=== PATIENT | female | born 1990 | race Caucasian/White ===

== ENCOUNTER 2020-06-17 22:47 | Emergency (ER) | payer MEDICAID, SELFPAY ==
[2020-06-17 22:52] VITALS: BP 117/78; PULSE 67; RESP 14; TEMP 36.1; O2SAT 98; BMI 21.6
--- NOTE | 2020-06-17 23:38 | ED_ITS ---
HPI - Abdominal Pain General Chief Complaint: Nausea/Vomiting/Diarrhea Stated Complaint: nausea Time Seen by Provider: 06/17/20 23:36 Source: patient Mode of arrival: ambulatory Limitations: no limitations History of Present Illness HPI narrative: pt with no significant past medical history missed her period complaining of lower abdominal pain with nausea vomiting all day today pain is localized suprapubic area no vaginal bleeding no urinary complaints patient denied any breast tenderness no fever no chills MD elicited complaint: abdominal pain Pertinent past history: none Related Data Allergies Allergy/AdvReac Type Severity Reaction Status Date / Time No Known Allergies Allergy Unverified 12/18/19 17:29 [No Known Allergies*] Review of Systems Review of Systems Constitutional : No Weight loss, No Fever, No Chills ENT/Mouth : No sore throat, No Rhinorrhea Eyes: No Eye Pain, No Swelling Cardiovascular : No Chest Pain, no palpitations Respiratory : No Cough, No Sputum, no shortness of breath Gastrointestinal : ++ Nausea, ++ Vomiting, No Diarrhea, ++ abdominal Pain, no black stools Genitourinary : No Dysuria, No Urinary Frequency Musculoskeletal : No joint pain, No Myalgias, No Joint Swelling Skin : No Skin Lesions, No rash Neuro : No Weakness, No Numbness, No Dizziness, No Headache Psych : No Anxiety/Panic, No Depression Heme/Lymph: No Bruising, No Lymphadenopathy Endocrine : No Polyuria, No Polydipsia All other systems reviewed and are negative Physical Exam Vital Signs: Vital Signs: Last Vital Signs Temp 97 F 06/17/20 22:52 Pulse 67 06/17/20 22:52 Resp 14 06/17/20 22:52 BP 117/78 06/17/20 22:52 Pulse Ox 98 06/17/20 22:52 Body Mass Index 21.6 Appearance: Alert. Oriented X3. No acute distress. Eyes: Pupils equal, round and reactive to light. ENT: Pharynx normal. Dry mucosa Neck: Normal inspection. Neck supple. CVS: Normal heart rate and rhythm. Pulses normal. Respiratory: No respiratory distress. Breath sounds normal. Abdomen: Soft slight suprapubic tenderness no rebound tenderness or guarding, Bowel sounds are present, no mass palpable, no CVA tenderness Skin: Skin warm and dry. Normal skin color. Normal skin turgor. Extremities: No lower extremity edema. Neuro: Oriented X 3. No motor deficit. No sensory deficit. MDM - Abdominal Pain MDM Narrative Medical decision making narrative: Patient with acute vomiting all day today urine is negative patient feeling much better after IV medication and IV hydration will discharge patient Differential Diagnosis Differential diagnosis: Likely gastroenteritis, gastritis and pancreatitis Lab Data Attestation: I reviewed the patient's lab results. Result diagrams: 06/17/20 23:58 06/17/20 23:59 Labs: Lab Results 06/17/20 06/17/20 06/17/20 Range/Units 23:58 23:59 23:59 WBC 11.7 H (4.8-10.8) X10*3/uL RBC 4.54 (4.20-5.50) X10*6/uL Hgb 12.8 (12.0-16.0) g/dl Hct 39.1 (37-47) % MCV 86.1 (80-98) fL MCH 28.2 (27.0-33.0) pg MCHC 32.7 (31.0-35.0) g/dl RDW 12.6 (11.0-16.0) % Plt Count 235 (160-400) X10*3/uL MPV 10.7 (9.4-12.3) fL Immature Gran % (Auto) 0.3 (0.0-0.4) % Neut % (Auto) 71.9 (45-73) % Lymph % (Auto) 24.4 (20-40) % [place] % (Auto) 2.7 (2-11) % Eos % (Auto) 0.4 (0-4) % Baso % (Auto) 0.3 (0-2) % Lymph # (Auto) 2.9 (1.2-4.9) X10*3/uL [place] # (Auto) 0.3 (0.1-1.2) X10*3/uL Eos # (Auto) 0.1 (0.0-0.4) X10*3/uL Baso # (Auto) 0.0 (0.0-0.2) X10*3/uL Abs Immat Gran (auto) 0.04 H (0.00-0.03) X10*3/uL Absolute Neuts (auto) 8.4 H (2.0-8.3) X10*3/uL Absolute Nucleated RBC 0.000 (0.0-0.012) X10*3/uL Nucleated RBC % (auto) 0.0 (0.0-0.2) /100WBC Sodium 139 (135-145) mmol/L Potassium 4.1 (3.3-5.1) mmol/L Chloride 105 (96-108) mmol/L Carbon Dioxide 25 (22-29) mmol/L Anion Gap 13 (12-20) BUN 12 (9-16) mg/dL Creatinine 0.76 (0.5-1.4) mg/dL Estim Creat Clear Calc 67.7 Estimated GFR > 60 Random Glucose 131 H (60-115) mg/dL Calcium 8.8 (8.4-10.2) mg/dL Total Bilirubin 0.6 (0.0-1.0) mg/dL Direct Bilirubin 0.2 (0.0-0.5) mg/dL AST 15 (5-31) U/L ALT 17 (0-31) U/L Alkaline Phosphatase 106 (39-117) U/L Total Protein 7.5 (6.5-8.0) g/dL Albumin 4.6 (3.5-5.0) g/dL Lipase 20 (8-78) U/L Urine Color YELLOW Urine Appearance CLEAR Urine pH 5.5 (5.0-8.0) Ur Specific [place] >= 1.030 H (1.005-1.025) Urine Protein NEG (NEG-TRACE) MG/DL Urine Glucose (UA) NEG (NEG) MG/DL Urine Ketones NEG (NEG) MG/DL Urine Blood NEG (NEG) Urine Nitrite NEG (NEG) Ur Leukocyte Esterase NEG (NEG) Urine Test (NEGATIVE) 06/17/20 Range/Units 23:59 WBC (4.8-10.8) X10*3/uL RBC (4.20-5.50) X10*6/uL Hgb (12.0-16.0) g/dl Hct (37-47) % MCV (80-98) fL MCH (27.0-33.0) pg MCHC (31.0-35.0) g/dl RDW (11.0-16.0) % Plt Count (160-400) X10*3/uL MPV (9.4-12.3) fL Immature Gran % (Auto) (0.0-0.4) % Neut % (Auto) (45-73) % Lymph % (Auto) (20-40) % [place] % (Auto) (2-11) % Eos % (Auto) (0-4) % Baso % (Auto) (0-2) % Lymph # (Auto) (1.2-4.9) X10*3/uL [place] # (Auto) (0.1-1.2) X10*3/uL Eos # (Auto) (0.0-0.4) X10*3/uL Baso # (Auto) (0.0-0.2) X10*3/uL Abs Immat Gran (auto) (0.00-0.03) X10*3/uL Absolute Neuts (auto) (2.0-8.3) X10*3/uL Absolute Nucleated RBC (0.0-0.012) X10*3/uL Nucleated RBC % (auto) (0.0-0.2) /100WBC Sodium (135-145) mmol/L Potassium (3.3-5.1) mmol/L Chloride (96-108) mmol/L Carbon Dioxide (22-29) mmol/L Anion Gap (12-20) BUN (9-16) mg/dL Creatinine (0.5-1.4) mg/dL Estim Creat Clear Calc Estimated GFR Random Glucose (60-115) mg/dL Calcium (8.4-10.2) mg/dL Total Bilirubin (0.0-1.0) mg/dL Direct Bilirubin (0.0-0.5) mg/dL AST (5-31) U/L ALT (0-31) U/L Alkaline Phosphatase (39-117) U/L Total Protein (6.5-8.0) g/dL Albumin (3.5-5.0) g/dL Lipase (8-78) U/L Urine Color Urine Appearance Urine pH (5.0-8.0) Ur Specific [place] (1.005-1.025) Urine Protein (NEG-TRACE) MG/DL Urine Glucose (UA) (NEG) MG/DL Urine Ketones (NEG) MG/DL Urine Blood (NEG) Urine Nitrite (NEG) Ur Leukocyte Esterase (NEG) Urine Test NEGATIVE (NEGATIVE) PMFSH Past Medical History Medical History Heart murmur Social History Social History Advance Directives: No Advance Directives Information Provided: No
[2020-06-18] MEDS: ondansetron HCL 4 MG/2 ML VIAL IVPUSH (00:11)
[2020-06-18] MEDS: 0.9 % Sodium Chloride 1,000 ML 999 ML IVCONT (00:11)
[2020-06-18 00:18] LABS: MANUAL DIFF FLAG NO
[2020-06-18 00:19] LABS: Basophils Percent Auto 0.3 % (0-2); Eosinophils Absolute Auto 0.1 X10*3/uL (0.0-0.4); Eosinophils Percent Auto 0.4 % (0-4); Hematocrit 39.1 % (37-47); Hemoglobin 12.8 g/dl (12.0-16.0); Imm Gran Abs Auto 0.04 X10*3/uL (0.00-0.03); Imm Gran Pct Auto 0.3 % (0.0-0.4); Lymphocytes Absolute Auto 2.9 X10*3/uL (1.2-4.9); Lymphocytes Percent Auto 24.4 % (20-40); Mean Corpuscular HGB Conc 32.7 g/dl (31.0-35.0); Mean Corpuscular Hemoglobin 28.2 pg (27.0-33.0); Mean Corpuscular Volume 86.1 fL (80-98); Mean Platelet Volume 10.7 fL (9.4-12.3); Monocytes Absolute Auto 0.3 X10*3/uL (0.1-1.2); Monocytes Percent Auto 2.7 % (2-11); Neutrophils Absolute Auto 8.4 X10*3/uL (2.0-8.3); Neutrophils Percent Auto 71.9 % (45-73); Platelet Count 235 X10*3/uL (160-400); Red Blood Count 4.54 X10*6/uL (4.20-5.50); Red Cell Distribution Width 12.6 % (11.0-16.0); White Blood Count 11.7 X10*3/uL (4.8-10.8)
[2020-06-18 00:20] LABS: Glucose Urine UA NEG (NEG); Leukocyte Esterase Urine NEG (NEG); Nitrite Urine NEG (NEG); PH 5.5 (5.0-8.0); Specific Gravity - Urine >= 1.030 (1.005-1.025); Urine Blood NEG (NEG); Urine Ketones NEG (NEG); Urine Protein NEG (NEG-TRACE)
[2020-06-18 00:21] LABS: Appearance Urine CLEAR; Color Urine YELLOW
[2020-06-18 00:23] LABS: UPreg QC Valid YES; Urine Pregnancy NEGATIVE (NEGATIVE)
[2020-06-18 00:47] LABS: Alanine Aminotransferase 17 U/L (0-31); Albumin Level 4.6 g/dL (3.5-5.0); Alkaline Phosphatase 106 U/L (39-117); Anion Gap 13 (12-20); Aspartate Amino Transferase 15 U/L (5-31); Bilirubin Direct 0.2 mg/dL (0.0-0.5); Bilirubin Total 0.6 mg/dL (0.0-1.0); Blood Urea Nitrogen 12 mg/dL (9-16); Calcium 8.8 mg/dL (8.4-10.2); Carbon Dioxide 25 mmol/L (22-29); Chloride 105 mmol/L (96-108); Creatinine Clr Calc Pharmacy 67.7; Estimated Glomerular Filt Rate > 60; Glucose Random 131 mg/dL (60-115); Lipase 20 U/L (8-78); Potassium 4.1 mmol/L (3.3-5.1); Sodium 139 mmol/L (135-145); Total Protein 7.5 g/dL (6.5-8.0)
== END 2020-06-18 01:57 | disposition home or self-care (01) ==
PROVIDERS: Emergency Provider Internal Medicine
DX: K52.9 Noninfective gastroenteritis and colitis, unspecified (principal); R11.2 Nausea with vomiting, unspecified; R10.30 Lower abdominal pain, unspecified
CPT/HCPCS: 36415; 80048; 80076; 81003; 81025; 83690; 85025; 96361; 96374; 99283; 99284; J2405

== ENCOUNTER 2024-09-14 20:51 | Emergency (ER) | payer OTHER, SELFPAY ==
[2024-09-14 21:09] VITALS: BP 119/56; PULSE 104; RESP 18; O2SAT 96; BMI 31.6
[2024-09-14 21:26] LABS: Basophils Percent Auto 0.2 % (0-2); Eosinophils Absolute Auto 0.1 X10*3/uL (0.0-0.4); Eosinophils Percent Auto 0.7 % (0-4); Hematocrit 33.6 % (37.0-47.0); Hemoglobin 11.6 g/dl (12.0-16.0); Imm Gran Abs Auto 0.18 X10*3/uL (0.00-0.03); Imm Gran Pct Auto 1.6 % (0.0-0.4); Lymphocytes Absolute Auto 2.3 X10*3/uL (1.2-4.9); Lymphocytes Percent Auto 21.2 % (20-40); MANUAL DIFF FLAG NO; Mean Corpuscular HGB Conc 34.5 g/dl (31.0-35.0); Mean Corpuscular Hemoglobin 28.8 pg (27.0-33.0); Mean Corpuscular Volume 83.4 fL (80.0-98.0); Mean Platelet Volume 10.4 fL (9.4-12.3); Monocytes Absolute Auto 0.6 X10*3/uL (0.1-1.2); Monocytes Percent Auto 5.7 % (2-11); Neutrophils Absolute Auto 7.7 x10*3/uL (2.0-8.3); Neutrophils Percent Auto 70.6 % (45-73); Platelet Count 262 X10*3/uL (160-400); Red Blood Count 4.03 X10*6/uL (4.20-5.50); Red Cell Distribution Width 14.3 % (11.0-16.0)
--- OUTSIDE RECORDS SUMMARY | 2024-09-14 21:33 | XMS_ITS | Clinical Summary ---
Author Organization [facility] Address [address] [place] [id number] Care Team Providers Care Data Technical Lead Name Role Phone Pcp, No Primary Care Provider Unavailabl e Allergies No known active allergies Medications metoCLOPRAMIDE (REGLAN) 5 MG tablet Take 1 tablet (5 mg total) by mouth 4 times daily (every 6 hours) as needed for nausea. 14 tablet 06/20/2024 Active acetaminophen (TYLENOL) 500 MG tablet Take 1 tablet (500 mg total) by mouth 4 times daily (every 6 hours) as needed for mild pain (pain). 20 tablet 06/20/2024 Active Encounters Date Type Department Care Team Description 08/23/2024 12:10 AM EDT Ancillary Procedure [facility] Emergency Department [address] [place] [phone] Haylie Sebastian MD 08/22/2024 10:49 PM EDT - 08/23/2024 12:42 AM EDT Emergency [facility] Emergency Department [address] [place] [phone] Haylie Sebastian MD Lower abdominal pain (Primary Dx); Encounter for supervision of normal , unspecified, unspecified trimester Discharge Disposition: Home or Self Care 08/22/2024 Travel 08/09/2024 Ancillary Procedure [facility] Emergency Department [address] [place] [phone] Shelia Stein PA-C 08/08/2024 10:52 PM EDT - 08/09/2024 2:10 AM EDT Emergency [facility] Emergency Department [address] [place] [phone] Xavier Bentley MD LLQ abdominal pain (Primary Dx) Discharge Disposition: Home or Self Care 08/08/2024 Travel 08/03/2024 5:40 PM EDT Ancillary Procedure [facility] Emergency Department [address] [place] [address], [place] [phone] 08/03/2024 5:21 PM EDT - 08/03/2024 7:04 PM EDT Emergency [facility] Emergency Department [address] [place] [phone] Keaton Brown MD Cystitis (Primary Dx); Dysuria Discharge Disposition: Home or Self Care 08/03/2024 Travel 06/20/2024 8:25 PM EDT - 06/20/2024 11:33 PM EDT Emergency [facility] Emergency Department [address] [place] [phone] (Primary Dx); Pelvic cramping Discharge Disposition: Home or Self Care from Last 3 Months Social History Tobacco Use Types Packs/Day Years Used Date Smoking Tobacco: Never Assessed Comments Yes Sex and Gender Information Value Date Recorded Sex Assigned at Female 06/20/2024 8:30 PM EDT Legal Sex Female 8:10 PM EDT Gender Identity Female 06/20/2024 8:30 PM EDT Sexual Orientation Heterosexual (straight) 06/20 8:30 PM EDT Last Filed Vital Signs Vital Sign Reading Time Taken Comments Blood Pressure 124/66 08/22/2024 10:48 PM EDT Pulse 94 08/22/2024 10:48 PM EDT Temperature 36.9 ??C (98.4 ??F) 08/22/2024 10:48 PM E DT Respiratory Rate 16 08/22/2024 10:48 PM EDT Oxygen Saturation 100% 08/22/2024 10:48 PM EDT Inhaled Oxygen Concentration - - Weight - - Height - - Body Mass Index - - Plan of Treatment Health Maintenance Due Date Last Done Comments Hepatitis C Virus Screening 1992 DTaP/Tdap/Td Vaccines (1 - Tdap) 06/24/2011 Hepatitis B Vaccines (1 of 3 - 19+ 3-dose series) 06/24/2011 Pap Smear (Ages 21-65) 2013 COVID-19 Vaccine (4 - 2023-2 5 season) 2023 04/24/2021, 09/08/2020, 08/18/2020 Influenza Vaccine 10/31/2024 02/02/2023, 02/22/2021, 02/12/2019 RSV Vaccine 60 years and older and Patients (1 - 1-dose 75+ series) 06/24/2067 HIV Screening Completed 08/08/2024 HPV Vaccines Aged Out No longer eligi ble based on patient's age to complete this topic Pneumococcal Vaccine: Pediatric (0-5 Years) and At-Risk Patients (6 to 49 Years) Aged Out No longer eligible b ased on patient's age to complete this topic Procedures Procedure Name Priority Date/Time Associated Diagnosis Comments ED PERFORMED US TRANSABDOMINAL OBSTETRIC STAT 08/22/2024 11:56 PM EDT Encounter for supervision of normal , unspecified, unspecified trimester POCT GLUCOSE, FINGERSTICK (CHARGE) Routine 08/22/2024 11:39 PM EDT POCT , URINE (CHARGE) STAT 08/22/2024 11:36 PM EDT POCT URINALYSIS DIPSTICK (IN-HOUSE) (CHARGE) Routine 08/22/2024 11:35 PM EDT URINALYSIS WITH REFLEX TO MICROSCOPIC AND CULTURE STAT 08/22/2024 11:26 PM EDT LEARNER TRANSABDOMINAL PELVIC POC ULTRASOUND Routine 08/09/2024 2:00 AM EDT URINALYSIS WITH REFLEX TO MICROSCOPIC AND CULTURE STAT 08/09/2024 12:37 AM EDT COMPREHENSIVE METABOLIC PANEL STAT 08/08/2024 10:59 PM EDT COMPLETE BLOOD COUNT, WITH DIFFERENTIAL STAT 08/08/2024 10:59 PM EDT HIV 1/2 AG/AB CMIA REFLEX TO CONFIRMATION STAT 08/08/2024 10:59 PM EDT ALVA TRANSABDOMINAL PELVIC POC ULTRASOUND Routine 08/03/2024 5:46 PM EDT MICROSCOPIC URINALYSIS STAT 5:29 PM EDT URINALYSIS WITH REFLEX TO MICROSCOPIC AND CULTURE STAT 08/03/2024 5:29 PM EDT GC/CHLAMYDIA RNA BY TMA Routine 08/03/2024 5:29 PM EDT (REPORT) REFLEXIVE URINE CULTURE Routine 08/03/2024 5:29 PM EDT POCT , URINE (CHARGE) STAT 06/20/2024 8:35 PM EDT URINALYSIS WITH REFLEX TO MICROSCOPIC AND CULTURE STAT 06/20/2024 8:27 PM EDT from Last 3 Months Results * Ed Performed Us Transabdominal Obstetric (08/22/2024 11:56 PM EDT) Anatomical Region Laterality Modality Ultrasound 08/22/2024 11:1 9 PM EDT Narrative 08/23/2024 12:05 AM EDT Pelvic ( ED) ?Exam Information: ?Exam Category: ??Diagnostic (Film Historian) ?Exam Type: ??Transabdominal ?Exam Occurrence: ??Initial exam ?Indication(s) for Exam: ?, Abdominal pain ?Views Obtained: ?Uterus: ??Sagittal ?Findings: ?Uterus: ? Cardiac Activity: ??Present ? Cardiac Rate (FHR): ??171 ? Motion: ??Present ?Estimated Gestational Age: ??13 weeks ?Interpretation: ?IUP ?Comments: ??only one view obtained, did not U/S ovaries. IUP with FHR and movement ?Medical Decision Making: ?All focused emergency ultrasounds are limited exams. ?Comprehensive studies should be obtained for further evaluation as clinically indicated. ?Attending Signature: ??I have personally performed or supervised the performance of the ultrasound, reviewed the images as archived, and agree with the findings and impression as documented Electronically signed by Haylie Sebastian on Friday, August 23, 2024 at 12:05 AM Procedure Note Haylie Sebastian MD - 08/23/2024 Pelvic ( ED) Exam Information: Exam Category: Diagnostic (Film Historian) Exam Type: Transabdominal Exam Occurrence: Initial exam Indication(s) for Exam: , Abdominal pain Views Obtained: Uterus: Sagittal Findings: Uterus: Cardiac Activity: Present Cardiac Rate (FHR): 171 Motion: Present Estimated Gestational Age: 13 weeks Interpretation: IUP Comments: only one view obtained, did not U/S ovaries. IUP withFHR and movement Medical Decision Making: All focused emergency ultrasounds are limited exams. Comprehensive studies should be obtained for further evaluation asclinically indicated. Attending Signature: I have personally performed or supervised theperformance of the ultrasound, reviewed the images as archived, and agreewith the findings and impression as documented Electronically signed by Haylie Sebastian on Friday, August 23, 2024 at12:05 AM Haylie Sebastian MD [facility]LES Final Res ult * POCT Glucose, Fingerstick (08/22/2024 11:39 PM EDT) POC Glucose 74 65 - 99 mg/dL 08/22/2024 11:39 PM EDT Blood specimen / Unknown 08/22/2024 11:39 PM EDT 08/22/2024 11:40 PM EDT us Haylie Sebastian MD POINT OF CARE TEST ORDERABL ES Final Result HOSPITAL LAB See Below * (ABNORMAL) POCT , Urine (08/22/2024 11:36 PM EDT) Only the most recent of2 resultswithin the time period is included. Preg Test, Ur Positive(A) Lot Number [id number] [employer] 08/22/2024 11:3 6 PM EDT us Haylie Sebastian MD POINT OF CARE TEST ORDERABL ES Final Result * (ABNORMAL) POCT Urinalysis Dipstick (08/22/2024 11:35 PM EDT) Color, UA Yellow 08/22/2024 11:37 PM EDT Clarity, UA Clear 08/22/2024 11:37 PM EDT Spec Grav, UA >1.029 1.003 - 1.030 08/22/2024 11:37 PM EDT pH, UA 7.0 5.0 - 8.0 08/22/2024 11:37 PM EDT Leukocyte Esterase, UA Negative Negative WBC/hpf 08/22/2024 11:37 PM EDT Nitrite, UA Negative Negative mg/dL 08/22/2024 11:37 PM EDT Protein, UA 30(A) NEG^Negative mg/dL 08/22/2024 11:37 PM EDT Glucose, UA Negative Negative mg/dL 08/22/2024 11:37 PM EDT Ketones, UA Negative Negative mg/dL 08/22/2024 11:37 PM EDT Urobilinogen, UA 4.0(H) 0.2 - 1.0 mg/dL 08/22/2024 11:37 PM EDT Bilirubin, UA Negative Negative mg/dL 08/22/2024 11:37 PM EDT Blood, UA Negative Negative Stefano/uL 08/22/2024 11:37 PM EDT Urine specimen / Unknown 08/22/2024 11:35 PM EDT 08/22/2024 11:37 PM EDT us Haylie Sebastian MD POINT OF CARE TEST ORDERABL ES Final Result HOSPITAL LAB See Below * (ABNORMAL) Urinalysis with Reflex to Microscopic and Culture (08/22/2024 11:26 PM EDT) Only the most recent of4 resultswithin the time period is included. Color Yellow 08/23/2024 12:46 AM [facility] Clarity Slightly cloudy 08/23/2024 12:46 AM [facility] Specific Ash 1.021 1.003 - 1.030 08/23/2024 12:46 AM [facility] pH 6.0 5.0 - 8.0 08/23/2024 12:46 AM [facility] Leukocyte Esterase Trace(A) Negative 08/23/2024 12:46 AM [facility] Nitrite Negative Negative 08/23/2024 12:46 AM [facility] Protein Negative Negative 08/23/2024 12:46 AM [facility] Glucose 0 0 - 99 mg/dL 08/23/2024 12:46 AM [facility] Ketones Negative Negative 08/23/2024 12:46 AM [facility] Blood Negative Negative 08/23/2024 12:46 AM [facility] Bilirubin Negative Negative 08/23/2024 12:46 AM [facility] WBC 1 0 - 4 per hpf 08/23/2024 12:46 AM [facility] RBC 0 0 - 4 per hpf 08/23/2024 12:46 AM [facility] Squamous Epithelial Cells 12 PER HPF 08/23/2024 12:46 AM [facility] Amorphous Crystals Present 08/23/2024 12:46 AM [facility] Urine Voided urine specimen / Unknown 08/22/2024 11:26 PM EDT 08/23/2024 12:24 AM EDT Raciel Temple PA-C URINE ORDERABLES Final Result Performing Organization Address City/[facility] Co de Phone Number [address] [address], [address] [address] * LEARNER TRANSABDOMINAL PELVIC POC US (08/09/2024 2:00 AM EDT) Anatomical Region Laterality Modality Ultrasound Narrative 08/09/2024 2:00 AM EDT *Educational Purposes Only* Live IUP, left kidney without hydro Shelia Stein PA-C IMG US ORDERABLES Final R esult * HIV 1/2 Ag/Ab CMIA Reflex to Confirmation (08/08/2024 10:59 PM EDT) HIV 1/2 Ag/Ab CMIA Nonreactive Nonreactive 08/11/2024 10:58 AM EDT [facility] Comment: Results show no evidence of infection by HIV 1/2. If clinically indicated, repeat CMIA or test by nucleic acid amplification. HIV 1/2 Antigen/Antibody CMIA reflex to confirmation AND HIV-1 RNA viral load recommended in patients who are taking or have recently taken PrEP. Blood Blood specimen / Unknown 08/08/2024 10:59 PM EDT 08/08/2024 11:12 PM EDT us Oralia PERES LAB BLOOD ORDERABLES Final Result [facility] [address] [place] [address], [place] * (ABNORMAL) Complete Blood Count, with Differential (08/08/2024 10:59 PM EDT) White Blood Cell Count 12.1(H) 4.0 - 11.0 Thou/uL 08/08/2024 11:23 PM EDT [facility] Platelet Count 283 150 - 450 Thou/uL 08/08/2024 11:23 PM EDT [facility] Hemoglobin 12.5 11.7 - 15.7 g/dL 08/08/2024 11:23 PM [facility] Hematocrit 37.9 35.0 - 47.0 % 08/08/2024 11:23 PM [facility] Red Blood Cell Count 4.53 4.00 - 5.40 Mil/uL 08/08/2024 11:23 PM [facility] MCV 84 80 - 100 fL 08/08/2024 11:23 PM [facility] MCH 27.6 26.0 - 34.0 pg 08/08/2024 11:23 PM [facility] MCHC 33.0 30.0 - 36.0 g/dL 08/08/2024 11:23 PM [facility] RDW 13.5 11.5 - 14.5 % 08/08/2024 11:23 PM [facility] MPV 10.2 7.5 - 12.5 fL 08/08/2024 11:23 PM [facility] Neutrophils Auto 68.1 % 08/09/19 11:23 PM [facility] Immature Granulocytes 0.6 % 08/08/2024 11:23 PM [facility] Lymphocytes Auto 25.4 % 08/09/19 25 11:23 PM [facility] Monocytes Auto 5.0 % 08/08/2024 11:23 PM [facility] Eosinophils Auto 0.7 % 08/09/19 11:23 PM [facility] Basophils Auto 0.2 % 08/08/2024 11:23 PM [facility] Abs Neutrophils Auto 8.23(H) 2.00 - 7.50 Thou/uL 08/08/2024 11:23 PM [facility] Abs Immature Granulocytes 0.07 0.00 - 0.10 Thou/uL 08/08/2024 11:23 PM [facility] Abs Lymphocytes Auto 3.07 1.50 - 4.50 Thou/uL 08/08/2024 11:23 PM [facility] Abs Monocytes Auto 0.60 0.20 - 1.50 Thou/uL 08/08/2024 11:23 PM [facility] Abs Eosinophils Auto 0.09 0.00 - 0.70 Thou/uL 08[facility]24 [facility] Basophils Auto 0.02 0.00 - 0.20 Thou/uL 08/08/2024 11:23 PM [facility] Blood Blood specimen / Unknown 08/08/2024 10:59 PM EDT 08/08/2024 11:12 PM EDT Oralia PERES LAB BLOOD ORDERABLES Final Result [facility] [address] [place] [address], [facility] [address] [place] [address] * (ABNORMAL) Comprehensive Metabolic Panel (08/08/2024 10:59 PM EDT) Glucose 97 65 - 99 mg/dL 08/09/2024 12:17 AM [facility] Comment:Fasting: <100 mg/dL, Non-Fasting: <200 mg/dL (ADA 2005) Blood Urea Nitrogen (BUN) 5(L) 8 - 21 mg/dL 08/09/2024 12:17 AM [facility] Creatinine 0.4 0.4 - 1.1 mg/dL 08/09/2024 12:17 AM [facility] eGFR >90 >59 08/09/2024 12:17 AM [facility] Comment:CKD-EPI (2020) in mL /min/1.73 sq meters. Sodium 139 136 - 145 mmol/L 08/09/2024 12:17 AM [facility] Potassium 3.9 3.4 - 5.3 mmol/L 08/09/2024 12:17 AM [facility] Chloride 105 98 - 107 mmol/L 08/09/2024 12:17 AM [facility] CO2 21(L) 22 - 33 mmol/L 08/09/2024 12:17 AM [facility] Calcium 8.9 8.7 - 10.5 mg/dL 08/09/2024 12:17 AM [facility] Alkaline Phosphatase 92 32 - 122 U/L 08/09/2024 12:17 AM [facility] Aspartate Aminotrans (AST) 20 10 - 50 U/L 08/09/2024 12:17 AM [facility] Alanine Aminotrans (ALT) 27 10 - 50 U/L 08/09/2024 12:17 AM [facility] Bilirubin, Total 0.3 0.2 - 1.0 mg/dL 08/09/2024 12:17 AM [facility] Protein, Total 7.4 6.3 - 8.3 g/dL 08/09/2024 12:17 AM [facility] Albumin 4.1 3.5 - 5.0 g/dL 08/09/2024 12:17 AM [facility] BUN/Creatinine Ratio 13 10.0 - 25.0 Ratio 08/09/2024 12:17 AM [facility] Globulin 3.3 1.5 - 3.9 g/dL 08/09/2024 12:17 AM [facility] Albumin/Globulin Ratio 1.2 1.0 - 3.0 Ratio 08/09/2024 12:17 AM [facility] Anion Gap 13 7 - 17 08/09/2024 12:17 AM [facility] Blood Blood specimen / Unknown 08/08/2024 10:59 PM EDT 08/08/2024 11:12 PM EDT us Oralia PERES LAB BLOOD ORDERABLES Final Result Performing Organization Address City/State/[facility] [place] [address], [place] [address] * ALVA TRANSABDOMINAL PELVIC POC ULTRASOUND (08/03/2024 5:46 PM EDT) Anatomical Region Laterality Modality Ultrasound Narrative 08/03/2024 5:46 PM EDT Procedure: Limited ULTRASOUND - Transabdominal Pelvic Scan, Non Limited Transabdominal NonObstetric Pelvic US Indication/Medical necessity: Dysuria Using the 3.5 MHz probe, the transverse and sagittal views of the pelvic cavity was evaluated , pt with +IUP, normal cardiac activity and movement The right adnexal region was not evaluated The left adnexal region was not evaluated Overall Findings/Impression: INTRAUTERINE WITH NORMAL HEART 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 Limitations/Complications of the procedure:none Performed By: Katiuska Gar PA-C Katiuska PERES IMGeoff US ORDERABLES Final Res ult * GC Chlamydia RNA by TMA (08/03/2024 5:29 PM EDT) Chlamydia RNA by TMA Negative Negative 08/04/2024 1:51 PM EDT [facility] GC RNA by TMA Negative Negative 08/04/2024 1:51 PM EDT [facility] Comment:Not FDA approved for GC/Chlamydia in [employer], rectal and throat specimens. Test validated by [facility] for detecting GC/Chlamydia from these sources. Urine Voided urine specimen / Unknown 08/03/2024 5:29 PM EDT 08/03/2024 6:12 PM EDT Katiuska PERES MICROBIOLOGY - GENERAL EAN [place]ARKE Final Result Performing Organization Address City/[facility]/ZIP Co de Phone Number [facility] [address] [place] [address], [place] * (ABNORMAL) Reflexive Urine Culture (08/03/2024 5:29 PM EDT) [facility] Culture Multiple bacterial morphotypes 10,000 colonies/mL present. No further identification will be performed.(A) 08/05/2024 9:38 AM EDT [facility] Urine specimen obtained by clean catch procedure / Unknown 08/03/2024 5:29 PM EDT 08/03/2024 5:37 PM EDT Comment:Urine Katiuska PERES MICROBIOLOGY - GENERAL EAN CLARKE Final Result [facility] [address] [place] [address], [place] * (ABNORMAL) Microscopic Urinalysis (08/03/2024 5:29 PM EDT) WBC 8(H) per hpf 08/03/2024 5:57 PM EDT [facility] RBC 0 per hpf 08/03/2024 5:57 PM EDT [facility] Bacteria Present(A) 08/03/2024 5:57 PM EDT [facility] Squamous Epithelial Cells 18 per hpf 08/03/2024 5:57 PM EDT [facility] Crystals Absent 08/03/2024 5:57 PM EDT [facility] Urine specimen obtained by clean catch procedure / Unknown 08/03/2024 5:29 PM EDT 08/03/2024 5:37 PM EDT Katiuska PERES URINE ORDERABLES Final Resu lt [address] [address], [address] Lic [id number], CAP Lic [id number] [place], [place] from Last 3 Months Insurance MEDICAID OUT OF STATE [facility] Care Teams Data Technical Lead Relationship Specialty Start Date End Date Pcp, No PCP - General General Medicine 08/22/24
[2024-09-14 21:49] LABS: Alanine Aminotransferase 48 U/L (0-31); Albumin Level 3.9 g/dL (3.5-5.0); Alkaline Phosphatase 95 U/L (39-117); Anion Gap 13 (12-20); Aspartate Amino Transferase 37 U/L (5-31); Bilirubin Total 0.3 mg/dL (0.0-1.0); Blood Urea Nitrogen 6 mg/dL (9-16); Calcium 9.1 mg/dL (8.4-10.2); Carbon Dioxide 24 mmol/L (22-29); Chloride 108 mmol/L (96-108); Creatinine Clr Calc Pharmacy 105.6; Estimated Glomerular Filt Rate > 60; Glucose Random 107 mg/dL (60-115); Potassium 3.7 mmol/L (3.3-5.1); Sodium 141 mmol/L (135-145); Total Protein 7.2 g/dL (6.5-8.0)
--- NOTE | 2024-09-14 22:05 | ED_ITS ---
HPI - General Adult General Chief complaint: Abdominal Pain Stated complaint: preg 15wks, haven't felt baby move few days Time Seen by Provider: 09/14/24 22:05 History of Present Illness ED Provider: Ginger BAUM narrative: The patient is a 34-year-old female who is approximately 16 weeks with her 2nd child. She comes to the emergency room because she is concerned that she is not felt the baby move in a few days. She is particularly concerned because her 1st resulted in significant prematurity. Her 1st child was born in 2019 at 23 weeks. Her child survived but, at age 5, is not verbal. She has been followed by the high-risk team at [facility]. The patient says that she has also had some left-sided pain in her abdomen but she has been eating normally without nausea or vomiting. Normal bowel movements. She reports some discomfort with urination and some urinary frequency and she feels that her urine is somewhat foamy. On exam she was found to have a very obvious heart murmur. She says that she has had an echocardiogram of the heart but does not know the results of the echocardiogram and she has not yet seen a prom burn off operator. Her next appointment at [facility] is on September 22, in 1 week. No fever, sweats, chills. No vaginal bleeding. The patient says that she was prescribed intravaginal progesterone because of her history of a previous premature . She says she has not been using the intravaginal progesterone because she does not understand how to use it. Related Data Previous Rx's ?Medication ?Instructions ?Recorded ondansetron 4 mg disintegrating 4 mg PO Q6-8H PRN nausea and 06/18/20 tablet vomiting #7 tabs Allergies Allergy/AdvReac Type Severity Reaction Status Date / Time No Known Allergies Allergy Unverified 09/14/24 21:12 [No Known Allergies*] Review of Systems 2 Review of Systems: Yes all other systems are reviewed and are negative PMFSH Past Medical History Medical History Heart murmur Social History Social History Smoked in Last 30 Days: No Use of substances other than those prescribed or required for medical reasons: No Advance Directives: No Advance Directives Information Provided: Yes Patient : Yes Physical Exam ED Vital Signs: Vital Signs - 24 hr 09/14/24 21:09 09/14/24 22:09 Temperature 98.3 F Pulse Rate 104 H 98 Respiratory Rate 18 16 Blood Pressure 119/56 L 109/59 L Pulse Oximetry 96 98 Oxygen Delivery Method Room Air Room Air BMI result Body Mass Index 31.6 Const Other: The patient is awake, alert, pleasant, cooperative. She does not appear acutely ill or unwell. Orientation/consciousness: patient oriented x3 HENMT Other: Face is symmetrical, mucous membranes moist Eyes General: appearance normal, both eyes and all related structures Neck Neck: Yes normal visual inspection, Yes full ROM and Yes no lymphadenopathy Resp Effort & Inspection: normal respiratory effort Auscultation: clear to auscultation bilaterally Cardio Other: The patient has a loud holosystolic murmur. Regular rate and rhythm. GI Other: The patient has a gravid abdomen. The uterine fundus is just below the umbilicus. No abdominal tenderness. General: Yes no CVA tenderness Back/Spine/Pelvis Back: no CVA tenderness Skin General skin exam: no rashes or lesions noted Neuro General: patient oriented x3, gait normal, tone normal, moves all extremities, no focal motor deficits and CN's II-XI intact bilaterally Extrem Other: No peripheral edema, no calf swelling or asymmetry Medical Decision Making Medical Decision Making [facility] Narrative: The patient is a 34-year-old female who was 15 weeks with her 2nd . She had her 1st about 6 years ago and had a premature baby at 23 weeks. She presents today because she has not felt the baby move in a couple of days. She also has a complaint of some left-sided abdominal pain although she has had no fever, nausea, vomiting. She complains of some urinary frequency and foamy urine. The patient's heart rate was 158 by Doppler. I performed an informal bedside ultrasound. There was obvious cardiac activity consistent with a heart rate of a proximally 158. There were obvious movements. On physical exam the patient has a loud holosystolic cardiac murmur. The patient says that this murmur has been previously identified and she has had an echocardiogram at [facility] although she does not know the results of the echocardiogram and she has not yet seen a prom burn off operator. She has an appointment with her mercury washer next week. An EKG today shows normal sinus rhythm with a sinus arrhythmia at 86 beats per minute. 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 No other acute findings. Overall the patient looks quite well. Vital signs are unremarkable. She has a an unremarkable CBC and basic metabolic panel. Minimal transaminitis. Beta hCG is 51,000. Urinalysis does not suggest a UTI. My overall impression is that the patient is stable for discharge to follow up with her OB. She is encouraged to call the OB office tomorrow to discuss the use of the progesterone that she was previously prescribed but has not been using. Additionally she needs to follow up with the Cardiology regarding her cardiac murmur and the results of her echocardiogram. Lab Data 09/14/24 21:20 09/14/24 21:20 Labs: Lab Results 09/14/24 09/14/24 Range/Units 21:20 23:03 WBC 11.0 H (4.8-10.8) X10*3/uL RBC 4.03 L (4.20-5.50) X10*6/uL Hgb 11.6 L (12.0-16.0) g/dl Hct 33.6 L (37.0-47.0) % MCV 83.4 (80.0-98.0) fL MCH 28.8 (27.0-33.0) pg MCHC 34.5 (31.0-35.0) g/dl RDW 14.3 (11.0-16.0) % Plt Count 262 (160-400) X10*3/uL MPV 10.4 (9.4-12.3) fL Immature Gran % (Auto) 1.6 H (0.0-0.4) % Neut % (Auto) 70.6 (45-73) % Lymph % (Auto) 21.2 (20-40) % [place]field % (Auto) 5.7 (2-11) % Eos % (Auto) 0.7 (0-4) % Baso % (Auto) 0.2 (0-2) % Lymph # (Auto) 2.3 (1.2-4.9) X10*3/uL Garfield # (Auto) 0.6 (0.1-1.2) X10*3/uL Eos # (Auto) 0.1 (0.0-0.4) X10*3/uL Baso # (Auto) 0.0 (0.0-0.2) X10*3/uL Abs Immat Gran (auto) 0.18 H (0.00-0.03) X10*3/uL Absolute Neuts (auto) 7.7 (2.0-8.3) x10*3/uL Absolute Nucleated RBC 0.000 (0.0-0.012) X10*3/uL Nucleated RBC % (auto) 0.0 (0.0-0.2) /100WBC Sodium 141 (135-145) mmol/L Potassium 3.7 (3.3-5.1) mmol/L Chloride 108 (96-108) mmol/L Carbon Dioxide 24 (22-29) mmol/L Anion Gap 13 (12-20) BUN 6 L (9-16) mg/dL Creatinine 0.60 (0.5-1.4) mg/dL Estim Creat Clear Calc 105.6 Estimated GFR > 60 Random Glucose 107 (60-115) mg/dL Calcium 9.1 (8.4-10.2) mg/dL Total Bilirubin 0.3 (0.0-1.0) mg/dL AST 37 H (5-31) U/L ALT 48 H (0-31) U/L Alkaline Phosphatase 95 (39-117) U/L Total Protein 7.2 (6.5-8.0) g/dL Albumin 3.9 (3.5-5.0) g/dL Beta HCG, Quant 80490 mIU/mL Urine Color Yellow Urine Appearance Cloudy Urine pH 8.5 (5.0-9.0) Ur Specific [place] 1.020 (1.005-1.025) Urine Protein 30 (1+) H (Neg-Trace) mg/dL Urine Glucose (UA) Negative (Negative) mg/dL Urine Ketones Negative (Negative) mg/dL Urine Blood Negative (Negative) Urine Nitrite Negative (Negative) Ur Leukocyte Esterase Negative (Negative) Urine RBC 3-5 H (0-2) /HPF Urine WBC 0-5 (0-5) /HPF Ur Squamous Epith Cells >20 (0-2) /HPF Urine Bacteria 1+ (None Seen) Hyaline Casts 0-2 (0-2) /LPF Discharge Plan Discharge Clinical Impression: 15 weeks gestation of , Heart murmur Patient Disposition: Home, Self-Care Additional Instructions: Your testing in the emergency room today is reassuring. Your blood testing and your urine testing do not show any worrisome findings. An informal ultrasound shows normal activity and cardiac activity of the fetus. Please keep your currently scheduled follow up appointments both with your obstetrical team and your appointment with the prom burn off operator to discuss your heart murmur. Please call your OB tomorrow to get information about how to use the progesterone you has been prescribed. Return to the emergency room if worse. Prescriptions: No Action ondansetron 4 mg tablet,disintegrating 4 mg PO Q6-8H PRN (Reason: nausea and vomiting) Qty: 7 0RF Referrals: [facility] [Provider Group] [facility] [Outside] Print Language: Malay
[2024-09-14 22:09] VITALS: BP 109/59; PULSE 98; RESP 16; TEMP 36.8; O2SAT 98
--- NOTE | 2024-09-14 22:09 | PC.NURSE ---
heart tones LLQ 158
[2024-09-14 23:29] LABS: Appearance Urine Cloudy; Color Urine Yellow; Glucose Urine UA Negative (Negative); Leukocyte Esterase Urine Negative (Negative); Nitrite Urine Negative (Negative); PH 8.5 (5.0-9.0); UMIC TRIGGER UACC YES; Urine Blood Negative (Negative); Urine Ketones Negative (Negative); Urine Protein 30 (1+) mg/dL (Neg-Trace)
[2024-09-14 23:46] LABS: Bacteria Urine 1+ (None Seen); Hyaline Casts Urine 0-2 /LPF (0-2); Squamous Epithelial Cell Urine >20 /HPF (0-2); WBC Urine 0-5 /HPF (0-5)
--- NOTE | 2024-09-14 23:53 | ECG_ITS ---
Test Reason : HEART MURMUR Blood Pressure : */* mmHG Vent. Rate : 86 BPM Atrial Rate : 86 BPM P-R Int : 142 ms QRS Dur : 68 ms QT Int : 390 ms P-R-T Axes : 45 111 27 degrees QTcB Int : 466 ms Normal sinus rhythm with sinus arrhythmia Left posterior fascicular block Abnormal ECG No previous ECGs available Referred By: Marcelino Miles Electronically Signed By: Chandrakant Chance
[2024-09-15 00:32] VITALS: BP 109/59; PULSE 98; RESP 16; TEMP 36.8; O2SAT 98
== END 2024-09-15 00:32 | disposition home or self-care (01) ==
PROVIDERS: Emergency Provider Emergency Medicine
DX: O99.412 Diseases of the circulatory system complicating pregnancy, second trimester (principal); I99.8 Other disorder of circulatory system; R01.1 Cardiac murmur, unspecified; I44.5 Left posterior fascicular block; Z3A.15 15 weeks gestation of pregnancy
CPT/HCPCS: 36415; 80053; 81001; 84702; 85025; 93005; 99283; 99284

== ENCOUNTER → 2024-09-14 23:53 | Outpatient (BNV) | payer OTHER, SELFPAY | PROVIDERS: Emergency Provider Emergency Medicine; Visit Provider Internal Medicine Cardiovascular Disease | DX: I44.5 Left posterior fascicular block (principal); I49.9 Cardiac arrhythmia, unspecified | CPT/HCPCS: 93010 ==